=== PATIENT | female | born 1990 | race Caucasian/White ===

== ENCOUNTER 2017-05-05 23:30 | Emergency (ER) | payer OTHER ==
[~2017-05-05] VITALS: Ht 170.2 cm; Wt 65.0 kg
[~2017-05-05 23:30] MED LIST: CYCL-36 PO; IBUP600 PO
[2017-05-05 23:33] VITALS: BP 129/70; PULSE 70; RESP 16; TEMP 98.4; O2SAT 98
--- NOTE | 2017-05-06 00:26 | PD ---
HPI Chief Complaint: Injury Time Seen by Provider: 00:23 Travel History International Travel<30 days: No Contact w/Intl Traveler<30days: No Traveled to known affect area: No History of Present Illness HPI Patient comes in for evaluation status post trip and fall down stairs occurred around 11 AM yesterday morning. Patient states she hit her head but denies loss of consciousness. Denies any headache, chest pain, shortness breath, nausea, vomiting, abdominal pain, back pain, loss change in bowel or bladder, numbness or tingling anywhere, dizziness, change in vision, or . Patient states she was trying to carry stuff downstairs when she missed a step causing her to fall. Patient complained of pain over her right elbow and bilateral shins. Pain is throbbing/aching like in nature without radiation. Pain is worse with certain movement and walking. Patient denies anything making it better. PFSH Past Medical History Diminished Hearing: No Gastrointestinal Disorders: Yes (CHROHNS) : 1 Social History Alcohol Use: No Tobacco Use: Yes (4 cigs per day) Substance Use: No Allergies-Medications (Allergen,Severity, Reaction): Coded Allergies: Ciprofloxacin (Verified Allergy, Intermediate, 05/06/17) Reported Meds & Prescriptions Reported Meds & Active Scripts Active Keflex (Cephalexin) 500 Mg Cap 500 Mg PO Q12H 7 Days Reported Humira 2-Pack Inj (Adalimumab 2-Pack Inj) 40 Mg/0.8 Ml Syr 40 Mg SQ Q14D Review of Systems Except as stated in HPI: all other systems reviewed are Neg Physical Exam Narrative GENERAL: Well-developed, well nourished, in no acute distress, and non-ill appearing. SKIN: Abrasions noted bilateral shins and contusion noted right posterior elbow. There is no foreign body noted. There is no crepitus. They are tender to palpation. HEAD: Atraumatic. Normocephalic. EYES: Pupils equal and round. EOMI. No scleral icterus. No injection or drainage. ENT: No nasal bleeding or discharge. Mucous membranes pink and moist. NECK: Trachea midline. Supple. No nuclear rigidity. CARDIOVASCULAR: Dorsal and radial pulses are 2+, intact, and equal bilaterally. Capillary refill less than 2 seconds. RESPIRATORY: No accessory muscle use. No respiratory distress. MUSCULOSKELETAL: No obvious deformities. No clubbing. No cyanosis. No edema. Full range of motion. Elbow : FROM and strength equal BL with passive flexion, extension, and pronation/supination. No laxity noted with varus and valgus maneuvers. Pulses equal BL distal to injury. Capillary refill less than 2 seconds distal to injury and equal BL. FROM distal to injury and equal BL. Strength distal to injury equal BL. NV intact distal to injury and equal BL. Flexion and extension of thumb equal BL. Equal strength and movement with abduction/adductions of BL fingers. [employer] strength equal BL. Knee: Negative patellar apprehension, varus and valgus maneuvers, anterior draw test, and Klaudia test. Pulses equal BL distal to injury. Capillary refill less than 2 seconds distal to injury and equal BL. FROM distal to injury and equal BL. Strength distal to injury equal BL. NV intact distal to injury. Dorsal pulses equal BL. Sensation equal BL 1st web space. There is soft tissue swelling posterior elbow and proximal forearm is tender to palpation. There is no crepitus or step-off. There is no fluid collection. Patient reports tenderness over anterior aspects bilateral shins over abrasions. There is no crepitus or deformity noted. NEUROLOGICAL: Awake and alert. No obvious cranial nerve deficits. Motor grossly within normal limits. Normal speech. PSYCHIATRIC: Appropriate mood and affect; insight and judgment normal. Data Data Last Documented VS Vital Signs Date Time Temp Pulse Resp B/P Pulse Ox O2 Delivery O2 Flow Rate FiO2 05/05/17 23:33 98.4 70 16 129/70 98 Orders Wound Care (05/06/17 00:19) Tetanus/Diphtheria Tox Adult (Tetanus/Di (05/06/17 00:30) Ice/Cold Pack (05/06/17 00:19) Elbow, Limited (Ap&Lat) (05/06/17 ) Tibia/Fibula (Ap/Lat) (05/06/17 ) Tibia/Fibula (Ap/Lat) (05/06/17 ) MDM Medical Decision Making Medical Screen Exam Complete: Yes Emergency Medical Condition: Yes Interpretation(s) X-ray of the right elbow read by radiologist shows: Negative examination of the elbow. X-ray of the right tib-fib read by the radiologist shows: Negative examination of the tibia and fibula. X-ray of the left tib-fib read the radiologist shows: Negative examination of the tibia and fibula. Differential Diagnosis Fracture, strain, contusion, laceration, abrasion, other Narrative Course The patient appears to have suffered a contusion of the extremity. There is no clinical evidence to suspect bony injury by exam. Radiographic examination revealed no fracture seen at this time. The patient has full range of motion on active and passive motions. There is no significant edema. There is no proximal or distal joint effusion. The distal extremity appears neurovascularly intact, without evidence of neurovascular injury nor compartment syndrome. Tendon exam also was intact. The patient was discharged on pain medication instructions and given warnings for vascular compromise. The patient is to follow up with their regular physician. The patient agrees with plan. The patient suffered abrasions. The abrasions are very superficial and non- repairable. There was no evidence to suggest foreign bodies. Visual and tactile exams were unremarkable. There was no evidence of neurovascular injury as well. The patients wounds were cleaned and dressed. The patient was given signs and symptom warnings for infection, such as increasing pain, redness, swelling, associated heat, pus or fever. The patient was given instructions for timely follow up. Patient placed on antibiotics prophylactically. The patient agreed with plan of care. Patient in no obvious distress upon re-evaluation. All pertinent Radiology result(s) discussed with patient. Patient was asked if they wanted to speak to my attending, which the patient did not wish to do at this time. Any questions/ concerns in reference to patient diagnosis/condition discussed and clarified prior to patient's discharge. Reinforced sheer importance of close follow up with patient's primary physician or primary care clinic. Instructed patient to return to ED immediately, if symptoms return/worsen. Pt showed understanding of above instructions. Further instructions and recommendations were detailed in discharge paperwork. Pt ambulated without difficulty out of ED at discharge. Diagnosis Primary Impression: Contusion of multiple sites Additional Impressions: Abrasions of multiple sites Fall Qualified Code: W19.XXXA - Fall, initial encounter Patient Instructions: Abrasion (ED), Contusion in Adults (ED), General Instructions Additional Instructions: Follow-up with your primary care physician in 3-4 days for reevaluation. Take all medication as prescribed. Keep wound dry and clean as possible using soap and water. Use Neosporin to promote healing. Use [id number] Tylenol and/ or ibuprofen as needed for pain. Follow instructions on the packaging. Apply ice to affected area 20 minutes prior to me for pain. Return to the emergency department if symptoms get worse. Med/Other Pt SpecificInfo: Prescription(s) given Scripts Cephalexin (Keflex)500 Mg [id number] Mg PO Q12H 7 Days Ref 0 Prov:Raymond Caldwell MD 05/06/17 Disposition: 01 DISCHARGE HOME Condition: Stable Daron Bruce May 06, 2017 00:26
[2017-05-06] MEDS ORDERED: TETANUS/DIPHTHERIA TOXOID ADULT 0.5 ML VIAL IM ONE (00:30)
[2017-05-06] MEDS ORDERED: HUMI40KI SQ (00:55)
--- NOTE | 2017-05-06 01:55 | RADRPT ---
EXAM DATE/TIME: 05/06/2017 01:23 [facility] COMPARISON: No previous studies available for comparison. INDICATIONS : Elbow pain. MEDICAL HISTORY : None. SURGICAL HISTORY : None. ENCOUNTER: Initial ACUITY: 1 day PAIN SCORE: 8/10 LOCATION: Right upper extremity elbow FINDINGS: Two view examination of the right elbow demonstrates no soft tissue swelling, joint effusion, fractur e or dislocation. Bony mineralization is normal. CONCLUSION: 1. Negative examination of the elbow. Ernesto Richards MD on May 06, 2017 at 1:53 Board Certified Radiologist. This report was verified electronically.
--- NOTE | 2017-05-06 01:56 | RADRPT ---
EXAM DATE/TIME: 05/06/2017 01:31 [facility] COMPARISON: No previous studies available for comparison. INDICATIONS : Right tibia/fibula pain. Fell down stairs. MEDICAL HISTORY : None. SURGICAL HISTORY : None. ENCOUNTER: Initial ACUITY: 1 day PAIN SCORE: 6/10 LOCATION: Right Tibia/fibula FINDINGS: Two view examination of the right tibia demonstrates no evidence of fracture or dislocation. Bony mi neralization is normal. The soft tissue structures are intact. CONCLUSION: Negative examination of the tibia and fibula. Ernesto Richards MD on May 06, 2017 at 1:54 Board Certified Radiologist. This report was verified electronically.
[2017-05-06] MEDS ORDERED: CEPH-460 PO (02:00)
--- NOTE | 2017-05-06 02:12 | RADRPT ---
EXAM DATE/TIME: 05/06/2017 01:28 [facility] COMPARISON: No previous studies available for comparison. INDICATIONS : Pain left tibia/fibula. Fell down stairs today. MEDICAL HISTORY : None. SURGICAL HISTORY : None. ENCOUNTER: Initial ACUITY: 1 day PAIN SCORE: 6/10 LOCATION: Left Tibia/fibula. FINDINGS: Two view examination of the left tibia demonstrates no evidence of fracture or dislocation. Bony min eralization is normal. The soft tissue structures are intact. CONCLUSION: Negative examination of the tibia and fibula. 1. Ernesto Richards MD on May 06, 2017 at 2:10 Board Certified Radiologist. This report was verified electronically.
== END 2017-05-06 02:36 | disposition home or self-care (01) ==
LOC: NEPK 23:30
DX: S50.01XA Contusion of right elbow, initial encounter (principal); S80.811A Abrasion, right lower leg, initial encounter; S80.812A Abrasion, left lower leg, initial encounter; W10.9XXA Fall (on) (from) unspecified stairs and steps, initial encounter; Y93.9 Activity, unspecified; Y92.9 Unspecified place or not applicable; F17.210 Nicotine dependence, cigarettes, uncomplicated; Z23 Encounter for immunization
CPT/HCPCS: 73070; 73590; 90471; 90714

== ENCOUNTER 2017-06-28 23:37 | Emergency (ER) | payer MEDICAID, OTHER ==
[~2017-06-28] VITALS: Ht 172.7 cm; Wt 69.0 kg
[~2017-06-28 23:37] MED LIST changes: +CEPH-460 PO; -CYCL-36 PO; +HUMI40KI SQ; -IBUP600 PO
[2017-06-28 23:40] VITALS: BP 131/65; PULSE 76; RESP 16; TEMP 98.6; O2SAT 99
[2017-06-29] MEDS ORDERED: PRIL20TA2 PO (01:00)
[2017-06-29 01:05] VITALS: BP 117/78; PULSE 75; RESP 16; O2SAT 99
[2017-06-29] MEDS ORDERED: SODIUM CHLOR 0.9% 1000 ML INJ 1,000 ML IV SCH (01:27)
[2017-06-29] MEDS ORDERED: MORPHINE SULFATE 4 MG/ML INJ IV PUSH ONE (01:30)
[2017-06-29] MEDS ORDERED: ONDANSETRON HCL 4 MG/2 ML VIAL IVP ONE (01:30)
[2017-06-29] MEDS ORDERED: SODIUM CHLORIDE 0.9% FLUSH 10 ML FLUSH IV FLUSH PRN (01:30)
[2017-06-29 01:40] VITALS: BP 117/78; PULSE 74; RESP 18; O2SAT 98
[2017-06-29] MEDS ORDERED: IOHEXOL 350 MG/ML 10 ML VIAL (for RAD DIAG) IVCONTRAST ONE (01:57)
[2017-06-29 01:59] LABS: BASOPHIL # 0.1 TH/MM3 (0-0.2); BASOPHIL % 0.8 % (0.0-2.0); EOSINOPHIL # 0.2 TH/MM3 (0-0.4); EOSINOPHIL % 1.8 % (0.0-4.0); HEMATOCRIT 34.1 % (35.0-46.0); HEMO FLAGS DIFF FINAL; LYMPH % 31.1 % (9.0-44.0); LYMPHOCYTE # 3.7 TH/MM3 (1.0-4.8); MEAN CELL VOLUME 68.3 FL (80.0-100.0); MEAN CORPUSCULAR HEMOGLOBIN 21.6 PG (27.0-34.0); MEAN CORPUSCULAR HGB CONC 31.6 % (32.0-36.0); MONO % 6.9 % (0.0-8.0); NEUT % 59.4 % (16.0-70.0); PLATELET COUNT 437 TH/MM3 (150-450); RED CELL DISTRIBUTION WIDTH 16.6 % (11.6-17.2); WHITE BLOOD COUNT 11.8 TH/MM3 (4.0-11.0)
[2017-06-29 02:00] LABS: BACTERIA, URINE MANY /hpf; BLOOD, URINE NEG (NEG); COMMENT (UR) CULTURE INDICATED; CULTURE IF INDICATED CULTURE INDICATED; GLUCOSE,URINE NEG (NEG); KETONE, URINE NEG (NEG); NITRITE,URINE NEG (NEG); URINE COLOR YELLOW (YELLW/STRAW)
--- NOTE | 2017-06-29 02:16 | RADRPT ---
EXAM DATE/TIME: 06/29/2017 01:54 [facility] COMPARISON: No previous studies available for comparison. INDICATIONS : Abdominal pain with nausea and vomiting. IV CONTRAST: 97 cc Omnipaque 350 (iohexol) IV ORAL CONTRAST: No oral contrast ingested. RADIATION DOSE: 8.48 CTDIvol (mGy) MEDICAL HISTORY : Crohn's disease. Anemia. Ovarian cysts. SURGICAL HISTORY : section. ENCOUNTER: Initial ACUITY: 1 day PAIN SCALE: 9/10 LOCATION: Bilateral abdomen TECHNIQUE: Volumetric scanning of the abdomen and pelvis was performed. Using automated exposure control and ad justment of the mA and/or kV according to patient size, radiation dose was kept as low as reasonably achievable to obtain optimal diagnostic quality images. DICOM format image data is available electro nically for review and comparison. FINDINGS: Lung bases demonstrate minimal dependent atelectasis. There is an abnormally dilated loop of small bowel in the left upper quadrant measuring about 3.4 cm in diameter. This appears to be associated with an area of mural thickening and some luminal narrowin g. Primary differential diagnosis is a focal area of Crohn's enteritis given the history of Crohn's d isease. This does not result in complete obstruction. There is no free air. There is trace free fluid in the pelvis. No acute findings in the liver, spleen, adrenals, kidneys or pancreas. No acute bony findings. CONCLUSION: 1. Abnormally dilated loop of small bowel in the left upper quadrant associated with some mural thick ening. Primary differential diagnosis is Crohn's enteritis. No complete obstruction. Trace free fluid in the pelvis. No free air. Prasanth Gant MD on June 29, 2017 at 2:08 Board Certified Radiologist. This report was verified electronically.
[2017-06-29 02:17] LABS: ALT (GPT) 15 U/L (10-53); ANION GAP 7 MEQ/L (5-15); APTT (PATIENT) 28.4 SEC (24.3-30.1); AST (GOT) 13 U/L (15-37); BICARBONATE 27.4 MEQ/L (21.0-32.0); BLOOD UREA NITROGEN 10 MG/DL (7-18); CHLORIDE 104 MEQ/L (98-107); GLOMERULAR FILTRATION RATE 92 ML/MIN (>89); POTASSIUM 3.6 MEQ/L (3.5-5.1); PROTHROMBIN TIME - PATIENT 10.7 SEC (9.8-11.6); SODIUM (NA) 138 MEQ/L (136-145)
[2017-06-29 02:19] LABS: ALKALINE PHOSPHATASE 55 U/L (45-117); TOTAL BILIRUBIN ADULT 0.3 MG/DL (0.2-1.0)
[2017-06-29] MEDS ORDERED: ACETAMINOPHEN/HYDROcodone 325 MG/5 MG TAB PO ONE (03:30)
[2017-06-29] MEDS ORDERED: AUGM875T3 PO (03:49)
[2017-06-29] MEDS ORDERED: METR-1 PO (03:49)
[2017-06-29] MEDS ORDERED: HYDR-3533 PO (03:50)
--- NOTE | 2017-06-29 03:50 | PD ---
HPI Chief Complaint: GI Complaint Time Seen by Provider: 01:21 Travel History International Travel<30 days: No Contact w/Intl Traveler<30days: No Traveled to known affect area: No History of Present Illness HPI Patient is a 27-year-old female who comes in complaining of abdominal pain with nausea, vomiting, diarrhea. She has history of Crohn's disease and used to be on Humira, but has not been able to get it for a while due to insurance issues. She says her symptoms started Tuesday. She says her stools have been loose and watery. She denies any blood in her stool. She says the first time she vomited Tuesday there was some pinkish liquid, but nothing since then. She denies fever or chills. She says she has pain to the left side of her abdomen. She says this feels like a typical Crohn's flare for her. PFSH Past Medical History Anemia: Yes Diminished Hearing: No Gastrointestinal Disorders: Yes (CHROHNS) Integumentary: Yes (PSORIASIS) Influenza Vaccination: No ?: Not LMP: 05/31/17 : 2 Para: 2 Ovarian Cysts: Yes (RT) Past Surgical History Section: Yes (X 2) Gynecologic Surgery: Yes Social History Alcohol Use: No Tobacco Use: Yes Substance Use: No Allergies-Medications (Allergen,Severity, Reaction): Coded Allergies: ciprofloxacin (Unverified Allergy, Intermediate, 06/28/17) Reported Meds & Prescriptions Reported Meds & Active Scripts Active Reported Prilosec (Omeprazole Magnesium) 20 Mg Tab 1 Tab PO DAILY Review of Systems Except as stated in HPI: all other systems reviewed are Neg General / Constitutional: No: Fever, Chills HENT: No: Headaches, Lightheadedness Cardiovascular: No: Chest Pain or Discomfort Respiratory: No: Shortness of Breath Gastrointestinal: Positive: Nausea, Vomiting, Diarrhea, Abdominal Pain Genitourinary: No: Dysuria Musculoskeletal: No: Myalgias, Edema Skin: No Rash, No Hives, No Change in Pigmentation Neurologic: No: Weakness, Dizziness Physical Exam Narrative GENERAL: Awake and alert, in no acute distress. SKIN: Focused skin assessment warm/dry. HEAD: Atraumatic. Normocephalic. EYES: Pupils equal and round. No scleral icterus. ENT: Mucous membranes pink and moist. NECK: Trachea midline. No JVD. CARDIOVASCULAR: Regular rate and rhythm. No murmur appreciated. RESPIRATORY: No accessory muscle use. Clear to auscultation. Breath sounds equal bilaterally. GASTROINTESTINAL: Abdomen soft, nondistended. Mild tenderness to palpation of the left side of the abdomen. No rebound or guarding. MUSCULOSKELETAL: No obvious deformities. No clubbing. No cyanosis. No edema. NEUROLOGICAL: Awake and alert. No obvious cranial nerve deficits. Motor grossly within normal limits. Normal speech. PSYCHIATRIC: Appropriate mood and affect; insight and judgment normal. Data Data Last Documented VS Vital Signs Date Time Temp Pulse Resp B/P (MAP) Pulse Ox O2 Delivery O2 Flow Rate FiO2 06/29/17 01:40 74 18 117/78 (91) 98 Room Air 06/28/17 23:40 98.6 Orders Orders Complete Blood Count With Diff (06/29/17 01:27) Comprehensive Metabolic Panel (06/29/17 01:27) Lactic Acid (06/29/17:27) Prothrombin Time / Inr (Pt) (06/29/17:27) Act Partial Throm Time (Ptt) (06/29/17:27) Urinalysis - C+S If Indicated (06/29/17 01:27) Ct Abd/Pel W Iv Contrast(Rout) (06/29/17:27) Iv Access Insert/Monitor (06/29/17:27) Ecg Monitoring (06/29/17:27) Oximetry (06/29/17 01:27) Morphine Inj (Morphine Inj) (06/29/17 01:30) Ondansetron Inj (Zofran Inj) (06/29/17 01:30) Sodium Chlor 0.9% 1000 Ml Inj (Ns 1000 M (06/29/17 01:27) Sodium Chloride 0.9% Flush (Ns Flush) (06/29/17 01:30) Ed Urine Pregnancytest Poc (06/29/17 01:27) Iohexol 350 Inj (Omnipaque 350 Inj) (06/29/17 01:57) Urine Culture (06/29/17 01:30) Acetamin-Hydrocod 325-5 Mg ([place] 5-325 (06/29/17 03:30) Labs Laboratory Tests Test 06/29/17 01:30 06/29/17 01:40 Urine Color YELLOW Urine Turbidity CLEAR Urine pH 6.0 Urine Specific [place] 1.017 Urine Protein NEG mg/dL Urine Glucose (UA) NEG mg/dL Urine Ketones NEG mg/dL Urine Occult Blood NEG Urine Nitrite NEG Urine Bilirubin NEG Urine Urobilinogen LESS THAN 2.0 MG/DL Urine Leukocyte Esterase TRACE Urine RBC 1 /hpf Urine WBC 4 /hpf Urine Bacteria MANY /hpf Microscopic Urinalysis Comment CULTURE INDICATED White Blood Count 11.8 TH/MM3 Red Blood Count 5.00 MIL/MM3 Hemoglobin 10.8 GM/DL Hematocrit 34.1 % Mean Corpuscular Volume 68.3 FL Mean Corpuscular Hemoglobin 21.6 PG Mean Corpuscular Hemoglobin Concent 31.6 % Red Cell Distribution Width 16.6 % Platelet Count 437 TH/MM3 Mean Platelet Volume 8.4 FL Neutrophils (%) (Auto) 59.4 % Lymphocytes (%) (Auto) 31.1 % Monocytes (%) (Auto) 6.9 % Eosinophils (%) (Auto) 1.8 % Basophils (%) (Auto) 0.8 % Neutrophils # (Auto) 7.0 TH/MM3 Lymphocytes # (Auto) 3.7 TH/MM3 Monocytes # (Auto) 0.8 TH/MM3 Eosinophils # (Auto) 0.2 TH/MM3 Basophils # (Auto) 0.1 TH/MM3 CBC Comment DIFF FINAL Differential Comment Prothrombin Time 10.7 SEC Prothromb Time International Ratio 1.0 RATIO Activated Partial Thromboplast Time 28.4 SEC Blood Urea Nitrogen 10 MG/DL Creatinine 0.76 MG/DL Random Glucose 89 MG/DL Total Protein 7.7 GM/DL Albumin 3.5 GM/DL Calcium Level 8.5 MG/DL Alkaline Phosphatase 55 U/L Aspartate Amino Transf (AST/SGOT) 13 U/L Alanine Aminotransferase (ALT/SGPT) 15 U/L Total Bilirubin 0.3 MG/DL Sodium Level 138 MEQ/L Potassium Level 3.6 MEQ/L Chloride Level 104 MEQ/L Carbon Dioxide Level 27.4 MEQ/L Anion Gap 7 MEQ/L Estimat Glomerular Filtration Rate 92 ML/MIN Lactic Acid Level 1.0 mmol/L [facility] Medical Decision Making Medical Screen Exam Complete: Yes Emergency Medical Condition: Yes Medical Record Reviewed: Yes Differential Diagnosis Crohn's flare versus colitis versus diverticulitis versus gastroenteritis Narrative Course Patient is a 27-year-old female with history of Crohn's disease who comes in complaining of nausea, vomiting, diarrhea, abdominal pain. Exam shows tenderness to left side of the abdomen. IV established, labs sent. Labs show slight elevation in white blood cell count 11.8. Lactic acid is 1. Creatinine is within normal limits. Patient given IV fluids, Zofran, morphine. CT abdomen and pelvis performed shows Crohn's enteritis. Last 24 hours Impressions Abdomen/Pelvis CT 06/29/17 0127 Signed Impressions: Service Date/Time: Thursday, June 29, 2017 01:54 - CONCLUSION: 1. Abnormally dilated loop of small bowel in the left upper quadrant associated with some mural thickening. Primary differential diagnosis is Crohn's enteritis. No complete obstruction. Trace free fluid in the pelvis. No free air. Prasanth Gant MD Patient started to have some pain after the CT. She was given a Lortab. Will be discharged home on antibiotics as well as pain medicine. Referral placed to gastroenterology. She is advised to return as needed for any worsening symptoms. Diagnosis Primary Impression: Crohn's regional enteritis Qualified Codes: K50.00 - Crohn's disease of small intestine without complications Referrals: Tory Prajapati MD call for appointment Patient Instructions: Crohn Disease (ED), Enteritis (ED), General Instructions Additional Instructions: Take all of your antibiotic. Do not drink alcohol taking the antibiotics. Follow-up with gastroenterology. Return to the ED as needed for any worsening symptoms. Scripts Hydrocodone-Acetaminophen (Lortab) 5-325 Mg Tab 1 TAB PO Q6H Y for PAIN, #6 TAB 0 Refills Prov: Barbara Lehman MD 06/29/17 Amoxicillin-Clavulanate (Augmentin) 875-125 Mg Tab 1 TAB PO BID for Infection for 7 Days, #14 TAB 0 Refills Prov: Barbara Lehman MD 06/29/17 Metronidazole (Flagyl) 500 Mg Tab 500 MG PO TID for Infection for 7 Days, TAB 0 Refills Prov: Barbara Lehman MD 06/29/17 Disposition: DISCHARGE HOME Condition: Stable Barbara Lehman MD Jun 29, 2017 03:50
[2017-08-02] MEDS ORDERED: PRED20 PO (10:22)
[2017-08-02] MEDS ORDERED: METR500T10 PO (10:22)
[2017-08-02] MEDS ORDERED: FERR325T8 PO (10:22)
== END 2017-06-29 06:10 | disposition home or self-care (01) ==
LOC: NEPE 23:37
DX: K50.00 Crohn's disease of small intestine without complications (principal); L40.9 Psoriasis, unspecified; D64.9 Anemia, unspecified
CPT/HCPCS: 74177; 80053; 81001; 83605; 84703; 85025; 85610; 85730; 87077; 87086; 87186; 96361; 96374; 96375; 99285; J2270; J2405; J7030; Q9967

== ENCOUNTER 2017-06-30 23:56 | Emergency (ER) | payer SELFPAY ==
[~2017-06-30 23:56] MED LIST changes: +AUGM875T3 PO; -CEPH-460 PO; -HUMI40KI SQ; +HYDR-3533 PO; +METR-1 PO; +PRIL20TA2 PO
[2017-07-01] MEDS ORDERED: SODIUM CHLOR 0.9% 1000 ML INJ 1,000 ML IV SCH (00:30)
[2017-07-01] MEDS ORDERED: HYDROmorphone HCL PF 1 MG/ML VIAL IV SCH (00:30)
[2017-07-01 04:59] LABS: BASOPHIL # 0.1 TH/MM3 (0-0.2); EOSINOPHIL # 0.2 TH/MM3 (0-0.4); EOSINOPHIL % 1.7 % (0.0-4.0); HEMO FLAGS DIFF FINAL; LYMPH % 27.3 % (9.0-44.0); LYMPHOCYTE # 2.6 TH/MM3 (1.0-4.8); MEAN CELL VOLUME 67.9 FL (80.0-100.0); MEAN CORPUSCULAR HEMOGLOBIN 21.1 PG (27.0-34.0); MONO % 7.9 % (0.0-8.0); NEUT % 62.1 % (16.0-70.0); PLATELET COUNT 377 TH/MM3 (150-450); RED BLOOD COUNT 4.57 MIL/MM3 (4.00-5.30); RED CELL DISTRIBUTION WIDTH 16.6 % (11.6-17.2); WHITE BLOOD COUNT 9.6 TH/MM3 (4.0-11.0)
[2017-07-01 07:15] LABS: BLOOD UREA NITROGEN 11 MG/DL (7-18); GLOMERULAR FILTRATION RATE 74 ML/MIN (>89)
[2017-07-01 07:16] LABS: ANION GAP 7 MEQ/L (5-15); BICARBONATE 27.4 MEQ/L (21.0-32.0); CHLORIDE 103 MEQ/L (98-107); POTASSIUM 4.2 MEQ/L (3.5-5.1); SODIUM (NA) 137 MEQ/L (136-145)
[2017-07-01 07:56] LABS: ALKALINE PHOSPHATASE 49 U/L (45-117); ALT (GPT) 17 U/L (10-53); AST (GOT) 43 U/L (15-37); TOTAL BILIRUBIN ADULT 0.4 MG/DL (0.2-1.0)
--- NOTE | 2017-07-02 00:10 | PD ---
HPI Chief Complaint: Abdominal Pain Time Seen by Provider: 00:01 Travel History International Travel<30 days: No Contact w/Intl Traveler<30days: No History of Present Illness HPI Patient is a 27-year-old female with a history of Crohn's disease presents emergency department for evaluation of a generalized abdominal cramping for the past week or so. Patient was evaluated here earlier this week states that she was sent home on hydrocodone and antibiotics and still continues to have pain. She states usually when she has to be in the hospital she gets Dilaudid. She is stating that she thinks she needs to be admitted to the hospital for colonoscopy and endoscopy and IV fluids. She states that she has not been able to follow up with her director case management because her insurance changed from Medicaid to Medicaid share of cost and she's not been able to go to her director case management. She states she's been on immunomodulators in the past but has not been able to for the same reason. Denies any fever denies any blood in denies possibility of denies any vaginal bleeding vaginal discharge. PFSH Past Medical History Anemia: Yes Diminished Hearing: No Gastrointestinal Disorders: Yes (CHROHNS) Integumentary: Yes (PSORIASIS) : 2 Para: 2 Ovarian Cysts: Yes (RT) Past Surgical History Section: Yes (X 2) Gynecologic Surgery: Yes Social History Alcohol Use: No Tobacco Use: Yes Substance Use: No Allergies-Medications (Allergen,Severity, Reaction): Coded Allergies: ciprofloxacin (Unverified Allergy, Intermediate, 06/28/17) Reported Meds & Prescriptions Reported Meds & Active Scripts Active Lortab (Hydrocodone-Acetaminophen) 5-325 Mg Tab 1 Tab PO Q6H PRN Augmentin (Amoxicillin-Clavulanate) 875-125 Mg Tab 1 Tab PO BID 7 Days Flagyl (Metronidazole) 500 Mg Tab 500 Mg PO TID 7 Days Reported Prilosec (Omeprazole Magnesium) 20 Mg Tab 1 Tab PO DAILY Review of Systems Except as stated in HPI: all other systems reviewed are Neg Physical Exam Narrative GENERAL: Well-developed well-nourished no obvious distress SKIN: Focused skin assessment warm/dry. HEAD: Atraumatic. Normocephalic. EYES: Pupils equal and round. No scleral icterus. No injection or drainage. ENT: No nasal bleeding or discharge. Mucous membranes pink and moist. NECK: Trachea midline. No JVD. CARDIOVASCULAR: Regular rate and rhythm. No murmur appreciated. RESPIRATORY: No accessory muscle use. Clear to auscultation. Breath sounds equal bilaterally. GASTROINTESTINAL: Abdomen soft, non-tender, nondistended. Hepatic and splenic margins not palpable. MUSCULOSKELETAL: No obvious deformities. No clubbing. No cyanosis. No edema. NEUROLOGICAL: Awake and alert. No obvious cranial nerve deficits. Motor grossly within normal limits. Normal speech. PSYCHIATRIC: Appropriate mood and affect; insight and judgment normal. Data Data Orders Orders Complete Blood Count With Diff (07/01/17 00:30) Comprehensive Metabolic Panel (07/01/17 00:30) Hydromorphone Pf Inj (Dilaudid Pf Inj) (07/01/17 00:30) Sodium Chlor 0.9% 1000 Ml Inj (Ns 1000 M (07/01/17 00:30) Labs Laboratory Tests Test 07/01/17 00:30 07/01/17 19:38 White Blood Count 9.6 TH/MM3 Red Blood Count 4.57 MIL/MM3 Hemoglobin 9.6 GM/DL Hematocrit 31.0 % Mean Corpuscular Volume 67.9 FL Mean Corpuscular Hemoglobin 21.1 PG Mean Corpuscular Hemoglobin Concent 31.0 % Red Cell Distribution Width 16.6 % Platelet Count 377 TH/MM3 Mean Platelet Volume 7.8 FL Neutrophils (%) (Auto) 62.1 % Lymphocytes (%) (Auto) 27.3 % Monocytes (%) (Auto) 7.9 % Eosinophils (%) (Auto) 1.7 % Basophils (%) (Auto) 1.0 % Neutrophils # (Auto) 6.0 TH/MM3 Lymphocytes # (Auto) 2.6 TH/MM3 Monocytes # (Auto) 0.8 TH/MM3 Eosinophils # (Auto) 0.2 TH/MM3 Basophils # (Auto) 0.1 TH/MM3 CBC Comment DIFF FINAL Differential Comment Blood Urea Nitrogen 11 MG/DL Creatinine 0.92 MG/DL Random Glucose 90 MG/DL Total Protein 7.2 GM/DL Albumin 3.2 GM/DL Calcium Level 8.7 MG/DL Alkaline Phosphatase 49 U/L Aspartate Amino Transf (AST/SGOT) 43 U/L Alanine Aminotransferase (ALT/SGPT) 17 U/L Total Bilirubin 0.4 MG/DL Sodium Level 137 MEQ/L Potassium Level 4.2 MEQ/L Chloride Level 103 MEQ/L Carbon Dioxide Level 27.4 MEQ/L Anion Gap 7 MEQ/L Estimat Glomerular Filtration Rate 74 ML/MIN Lab Scanned Report Lab Reports - Other [id number] [facility] Medical Decision Making Medical Screen Exam Complete: Yes Emergency Medical Condition: Yes Differential Diagnosis Abdominal pain, chronic abdominal pain, Crohn's flare. Narrative Course Patient roomed emergency department, she had a CAT scan 3 days ago which showed that she had some enteritis probably associated with Crohn's disease. Labs reviewed today and do show some mild anemia otherwise reassuring. Urine test negative. Vital signs are all within normal limits. She was seen under downtime procedures. She was given a dose of IV Dilaudid and was feeling better. Will add steroids. She was referred to gastroenterology. This time she stable for discharge is no indication for admission. No indication for emergent colonoscopy. Discussed return to ED criteria. Diagnosis Primary Impression: Crohns disease Qualified Codes: K50.00 - Crohn's disease of small intestine without complications Additional Impression: Enteritis Disposition: DISCHARGE HOME Condition: Stable Oziel López MD Jul 02, 2017 00:10
[2017-08-02] MEDS ORDERED: FERR325T8 PO (10:22)
[2017-08-02] MEDS ORDERED: PRED20 PO (10:22)
[2017-08-02] MEDS ORDERED: METR500T10 PO (10:22)
== END 2017-07-01 00:45 | disposition home or self-care (01) ==
LOC: NED 23:56
DX: K50.00 Crohn's disease of small intestine without complications (principal); Z72.0 Tobacco use
CPT/HCPCS: 80053; 85025; 99283; J7030

== ENCOUNTER 2017-08-18 15:40 | Emergency (ER) | payer SELFPAY ==
[~2017-08-18] VITALS: Ht 172.7 cm; Wt 75.0 kg
[~2017-08-18 15:40] MED LIST changes: -AUGM875T3 PO; +FERR325T18 PO; -HYDR-3533 PO; -METR-1 PO; +METR1TAB76 PO; +PRED20 PO
[2017-08-18] MEDS ORDERED: IOHEXOL 350 MG/ML 10 ML VIAL (for RAD DIAG) IVCONTRAST ONE (15:41)
[2017-08-18 15:43] VITALS: BP 125/80; PULSE 107; TEMP 98.3; O2SAT 100
--- NOTE | 2017-08-18 16:08 | PD ---
HPI Chief Complaint: Abdominal Pain Time Seen by Provider: 16:05 Travel History International Travel<30 days: No Contact w/Intl Traveler<30days: No Traveled to known affect area: No History of Present Illness HPI 27 old female with history of Crohn's disease presents to the emergency department for evaluation of lower abdominal pain, primarily on the left. Patient appears without distress. States she has been hospitalized 2 times in the last month at [facility]. She reports having a fistula identified on her last visit. She was placed on oral antibiotics, Flagyl, which she has taken in addition to steroids. She has been out of these for the last 5 or 6 days. She states that the pain persists. She continues to have loose stools, nonbloody in nature. No nausea or vomiting. Pain is an intermittent 6 out of 10 sometimes a 10 out of 10. No urinary symptoms. Denies any chance of . No other symptoms to report. PFSH Past Medical History Anemia: Yes Diminished Hearing: No Gastrointestinal Disorders: Yes (CHROHNS) Integumentary: Yes (PSORIASIS) ?: Not LMP: 07/28/17 : 2 Para: 2 Ovarian Cysts: Yes (RT) Past Surgical History Section: Yes (X 2) Gynecologic Surgery: Yes Social History Alcohol Use: No Tobacco Use: Yes Substance Use: No Allergies-Medications (Allergen,Severity, Reaction): Coded Allergies: ciprofloxacin (Verified Allergy, Intermediate, 08/18/17) Reported Meds & Prescriptions Reported Meds & Active Scripts Active Reported Ferrous Sulfate 325 Mg (65 Mg Iron) Tablet 325 Mg PO TIDPC Prilosec (Omeprazole Magnesium) 20 Mg Tab 1 Tab PO DAILY Review of Systems Except as stated in HPI: all other systems reviewed are Neg Physical Exam Narrative GENERAL: Well-nourished female patient, in no acute distress. SKIN: Focused skin assessment warm/dry. HEAD: Atraumatic. Normocephalic. EYES: Pupils equal and round. No scleral icterus. No injection or drainage. ENT: No nasal bleeding or discharge. Mucous membranes pink and moist. NECK: Trachea midline. No JVD. CARDIOVASCULAR: Regular rate and rhythm. No murmur appreciated. RESPIRATORY: No accessory muscle use. Clear to auscultation. Breath sounds equal bilaterally. GASTROINTESTINAL: Abdomen soft, nondistended. Mild left lower quadrant tenderness. No rebound tenderness. No guarding. Hepatic and splenic margins not palpable. MUSCULOSKELETAL: No obvious deformities. No clubbing. No cyanosis. No edema. NEUROLOGICAL: Awake and alert. No obvious cranial nerve deficits. Motor grossly within normal limits. Normal speech. PSYCHIATRIC: Appropriate mood and affect; insight and judgment normal. Data Data Last Documented VS Vital Signs Date Time Temp Pulse Resp B/P (MAP) Pulse Ox O2 Delivery O2 Flow Rate FiO2 08/18/17 18:45 97.8 76 17 118/77 (91) 99 08/18/17 17:16 Room Air Orders Orders Basic Metabolic Panel (Bmp) (08/18/17 16:28) Complete Blood Count With Diff (08/18/17 16:28) Prothrombin Time / Inr (Pt) (08/18/17 16:28) Act Partial Throm Time (Ptt) (08/18/17 16:28) Urinalysis - C+S If Indicated (08/18/17 16:28) Ct Abd/Pel W Iv Contrast(Rout) (08/18/17 16:28) Iv Access Insert/Monitor (08/18/17 16:28) Ecg Monitoring (08/18/17 16:28) Oximetry (08/18/17 16:28) Sodium Chlor 0.9% 1000 Ml Inj (Ns 1000 M (08/18/17 16:28) Sodium Chloride 0.9% Flush (Ns Flush) (08/18/17 16:30) Ed Urine Pregnancytest Poc (08/18/17 16:28) Iohexol 350 Inj (Omnipaque 350 Inj) (08/18/17 15:41) Ketorolac Inj (Toradol Inj) (08/18/17 18:15) Ed Discharge Order (08/18/17 18:25) Labs Laboratory Tests Test 08/18/17 16:36 White Blood Count 9.0 TH/MM3 Red Blood Count 4.65 MIL/MM3 Hemoglobin 11.0 GM/DL Hematocrit 34.1 % Mean Corpuscular Volume 73.3 FL Mean Corpuscular Hemoglobin 23.7 PG Mean Corpuscular Hemoglobin Concent 32.4 % Red Cell Distribution Width 23.9 % Platelet Count 404 TH/MM3 Mean Platelet Volume 7.6 FL Neutrophils (%) (Auto) 63.2 % Lymphocytes (%) (Auto) 25.7 % Monocytes (%) (Auto) 9.3 % Eosinophils (%) (Auto) 1.0 % Basophils (%) (Auto) 0.8 % Neutrophils # (Auto) 5.7 TH/MM3 Lymphocytes # (Auto) 2.3 TH/MM3 Monocytes # (Auto) 0.8 TH/MM3 Eosinophils # (Auto) 0.1 TH/MM3 Basophils # (Auto) 0.1 TH/MM3 CBC Comment DIFF FINAL Differential Comment Prothrombin Time 10.5 SEC Prothromb Time International Ratio 1.0 RATIO Activated Partial Thromboplast Time 28.0 SEC Urine Color LIGHT-YELLOW Urine Turbidity CLEAR Urine pH 6.0 Urine Specific [place] 1.006 Urine Protein NEG mg/dL Urine Glucose (UA) NEG mg/dL Urine Ketones NEG mg/dL Urine Occult Blood NEG Urine Nitrite NEG Urine Bilirubin NEG Urine Urobilinogen LESS THAN 2.0 MG/DL Urine Leukocyte Esterase NEG Urine WBC LESS THAN 1 /hpf Microscopic Urinalysis Comment CULT NOT INDICATED Blood Urea Nitrogen 8 MG/DL Creatinine 0.84 MG/DL Random Glucose 112 MG/DL Calcium Level 8.5 MG/DL Sodium Level 139 MEQ/L Potassium Level 3.7 MEQ/L Chloride Level 105 MEQ/L Carbon Dioxide Level 27.0 MEQ/L Anion Gap 7 MEQ/L Estimat Glomerular Filtration Rate 82 ML/MIN [facility] Medical Decision Making Medical Screen Exam Complete: Yes Emergency Medical Condition: Yes Medical Record Reviewed: Yes Differential Diagnosis Crohn's disease versus Crohn's exacerbation versus diverticulitis versus colitis versus UTI Narrative Course 27 year-old female presents to the emergency department for evaluation. Patient appears without distress. Abdomen has slight left lower quadrant tenderness, no significant tenderness to palpation. No guarding or rebound tenderness. Laboratory Tests Test 08/18/17 16:36 White Blood Count 9.0 TH/MM3 Red Blood Count 4.65 MIL/MM3 Hemoglobin 11.0 GM/DL Hematocrit 34.1 % Mean Corpuscular Volume 73.3 FL Mean Corpuscular Hemoglobin 23.7 PG Mean Corpuscular Hemoglobin Concent 32.4 % Red Cell Distribution Width 23.9 % Platelet Count 404 TH/MM3 Mean Platelet Volume 7.6 FL Neutrophils (%) (Auto) 63.2 % Lymphocytes (%) (Auto) 25.7 % Monocytes (%) (Auto) 9.3 % Eosinophils (%) (Auto) 1.0 % Basophils (%) (Auto) 0.8 % Neutrophils # (Auto) 5.7 TH/MM3 Lymphocytes # (Auto) 2.3 TH/MM3 Monocytes # (Auto) 0.8 TH/MM3 Eosinophils # (Auto) 0.1 TH/MM3 Basophils # (Auto) 0.1 TH/MM3 CBC Comment DIFF FINAL Differential Comment Prothrombin Time 10.5 SEC Prothromb Time International Ratio 1.0 RATIO Activated Partial Thromboplast Time 28.0 SEC Urine Color LIGHT-YELLOW Urine Turbidity CLEAR Urine pH 6.0 Urine Specific [place] 1.006 Urine Protein NEG mg/dL Urine Glucose (UA) NEG mg/dL Urine Ketones NEG mg/dL Urine Occult Blood NEG Urine Nitrite NEG Urine Bilirubin NEG Urine Urobilinogen LESS THAN 2.0 MG/DL Urine Leukocyte Esterase NEG Urine WBC LESS THAN 1 /hpf Microscopic Urinalysis Comment CULT NOT INDICATED Blood Urea Nitrogen 8 MG/DL Creatinine 0.84 MG/DL Random Glucose 112 MG/DL Calcium Level 8.5 MG/DL Sodium Level 139 MEQ/L Potassium Level 3.7 MEQ/L Chloride Level 105 MEQ/L Carbon Dioxide Level 27.0 MEQ/L Anion Gap 7 MEQ/L Estimat Glomerular Filtration Rate 82 ML/MIN Last Impressions Abdomen/Pelvis CT 08/18/17 [id number] Signed Impressions: Service Date/Time: August 17:34 - CONCLUSION: 1. The previously noted dilated loop of possible small bowel has resolved. 2. There is some questionable thickening involving the terminal ileum and distal small bowel with a trace of fluid in the right paracolic gutter. This could indicate some mild inflammatory bowel disease such as Crohn's. 3. There is a small amount of free fluid in the cul-de-sac. Charlie Means MD Findings are reviewed and I discussed the patient my attending physician. She' ll be started on oral steroids and encouraged follow-up with primary care provider. Agrees to return immediately with any acute worsening symptoms. Diagnosis Primary Impression: Crohn's disease Qualified Codes: K50.019 - Crohn's disease of small intestine with unspecified complications Referrals: Cullet Washer Primary Care Physician Patient Instructions: Crohn Disease (ED), General Instructions Additional Instructions: Follow-up with gastroenterology Follow-up with her primary care Return immediately with any acute worsening symptoms Med/Other Pt SpecificInfo: Prescription(s) given Scripts Hydrocodone-Acetaminophen (Lortab) 5-325 Mg Tab 1 TAB PO Q6H Y for PAIN GREATER THAN 7, #15 TAB 0 Refills Prov: Jodie Hirsch 08/18/17 Prednisone (Prednisone) 20 Mg Tab 20 MG PO BID for 5 Days, #10 TAB 0 Refills Prov: Jodie Hirsch 08/18/17 Disposition: 01 DISCHARGE HOME Condition: Stable Jodie Hirsch Aug 18, 2017 16:08
[2017-08-18] MEDS ORDERED: SODIUM CHLOR 0.9% 1000 ML INJ 1,000 ML IV SCH (16:28)
[2017-08-18] MEDS: SODIUM CHLORIDE 0.9% FLUSH 10 ML FLUSH IV FLUSH PRN ×2 (16:41→18:20)
[2017-08-18 16:49] LABS: BLOOD, URINE NEG (NEG); GLUCOSE,URINE NEG (NEG); KETONE, URINE NEG (NEG); NITRITE,URINE NEG (NEG); URINE COLOR LIGHT-YELLOW (YELLW/STRAW)
[2017-08-18 16:50] LABS: COMMENT (UR) CULT NOT INDICATED; CULTURE IF INDICATED CULT NOT INDICATED
[2017-08-18 16:54] LABS: AUTOMATED NEUTROPHIL # 5.7 TH/MM3 (1.8-7.7); BASOPHIL # 0.1 TH/MM3 (0-0.2); BASOPHIL % 0.8 % (0.0-2.0); EOSINOPHIL # 0.1 TH/MM3 (0-0.4); HEMATOCRIT 34.1 % (35.0-46.0); HEMO FLAGS DIFF FINAL; LYMPH % 25.7 % (9.0-44.0); LYMPHOCYTE # 2.3 TH/MM3 (1.0-4.8); MEAN CELL VOLUME 73.3 FL (80.0-100.0); MEAN CORPUSCULAR HEMOGLOBIN 23.7 PG (27.0-34.0); MEAN CORPUSCULAR HGB CONC 32.4 % (32.0-36.0); MONO % 9.3 % (0.0-8.0); NEUT % 63.2 % (16.0-70.0); PLATELET COUNT 404 TH/MM3 (150-450); RED BLOOD COUNT 4.65 MIL/MM3 (4.00-5.30); RED CELL DISTRIBUTION WIDTH 23.9 % (11.6-17.2)
[2017-08-18 17:02] LABS: PROTHROMBIN TIME - PATIENT 10.5 SEC (9.8-11.6)
[2017-08-18 17:04] LABS: POTASSIUM 3.7 MEQ/L (3.5-5.1)
[2017-08-18 17:16] VITALS: RESP 17; O2SAT 100
--- NOTE | 2017-08-18 17:54 | RADRPT ---
EXAM DATE/TIME: 08/18/2017 17:34 [facility] COMPARISON: CT ABDOMEN & PELVIS W CONTRAST, June 29, 2017, 1:54. INDICATIONS : Abdominal pain and diarrhea. IV CONTRAST: 95 cc Omnipaque 350 (iohexol) IV ORAL CONTRAST: No oral contrast ingested. RADIATION DOSE: 14.62 CTDIvol (mGy) MEDICAL HISTORY : Crohn's disease. Ovarian cysts, anemia. SURGICAL HISTORY : section. ENCOUNTER: Initial ACUITY: 3 days PAIN SCALE: 6/10 LOCATION: Bilateral lower quadrant PELVIS TECHNIQUE: Volumetric scanning of the abdomen and pelvis was performed. Using automated exposure control and ad justment of the mA and/or kV according to patient size, radiation dose was kept as low as reasonably achievable to obtain optimal diagnostic quality images. DICOM format image data is available electro nically for review and comparison. FINDINGS: LOWER LUNGS: The visualized lower lungs are clear. LIVER: Homogeneous density without lesion. There is no dilation of the biliary tree. No calcified gallston es. SPLEEN: Normal size without lesion. PANCREAS: Within normal limits. KIDNEYS: Normal in size and shape. There is no mass, stone or hydronephrosis. ADRENAL GLANDS: Within normal limits. VASCULAR: There is no aortic aneurysm. BOWEL/MESENTERY: The bowel gas pattern is within normal limits. The previously noted dilated loop of proximal small kezia wel is no longer demonstrated. There is some questionable thickening involving the terminal ileum wit h a trace of fluid in the right paracolic gutter. The appendix is unremarkable. There is a small amou nt of free fluid in the cul-de-sac. ABDOMINAL WALL: Within normal limits. RETROPERITONEUM: There is no lymphadenopathy. BLADDER: No wall thickening or mass. REPRODUCTIVE: Within normal limits. There is a small amount of fluid in the cul-de-sac. INGUINAL: There is no lymphadenopathy or hernia. MUSCULOSKELETAL: Within normal limits for patient age. CONCLUSION: 1. The previously noted dilated loop of possible small bowel has resolved. 2. There is some questionable thickening involving the terminal ileum and distal small bowel with a t race of fluid in the right paracolic gutter. This could indicate some mild inflammatory bowel disease such as Crohn's. 3. There is a small amount of free fluid in the cul-de-sac. Charlie Means MD on August 18, 2017 at 17:46 Board Certified Radiologist. This report was verified electronically.
[2017-08-18] MEDS ORDERED: KETOROLAC TROMETHAMINE 30 MG/ML (IVP) VIAL IV PUSH ONE (18:15)
[2017-08-18 18:45] VITALS: BP 118/77; TEMP 97.8
[2017-08-18] MEDS ORDERED: PRED20 PO (22:30)
[2017-08-18] MEDS ORDERED: HYDR-3533 PO (22:30)
[2017-08-25] MEDS ORDERED: HYDR-3516 PO (10:25)
[2017-08-25] MEDS ORDERED: CYAN1TAB21 SL (11:10)
== END 2017-08-18 18:45 | disposition home or self-care (01) ==
LOC: NEPC 15:40
DX: K50.019 Crohn's disease of small intestine with unspecified complications (principal); Z72.0 Tobacco use; Z87.19 Personal history of other diseases of the digestive system; Z86.2 Personal history of diseases of the blood and blood-forming organs and certain disorders involving the immune mechanism; Z87.2 Personal history of diseases of the skin and subcutaneous tissue
CPT/HCPCS: 74177; 80048; 81001; 84703; 85025; 85610; 85730; 96361; 96374; 99285; J1885; J7030; Q9967